=== PATIENT | female | born 1935 | race Caucasian/White ===

== ENCOUNTER 2017-07-08 13:16 | Outpatient (CLI) ==
[2016-07-22 19:56] VITALS: BMI 24.3
[2017-07-08 13:49] LABS: HEMATOCRIT 21.1 % (37.0-47.0); HEMOGLOBIN 6.6 g/dl (12.0-16.0)
== END 2017-07-08 13:17 | disposition home or self-care (01) ==
LOC: LAB 13:16
PROVIDERS: ATTEND Internal Medicine Hematology & Oncology
DX: N18.3 Chronic kidney disease, stage 3 (moderate) (principal); D63.1 Anemia in chronic kidney disease; R06.02 Shortness of breath; R53.1 Weakness
CPT/HCPCS: 36415; 85014; 85018; 86850; 86900; 86922

== ENCOUNTER 2017-07-09 08:48 | Outpatient (CLI) ==
[2016-07-22 19:56] VITALS: BMI 24.3
[2017-07-09 16:58] VITALS: BP 146/78; TEMP 98
== END 2017-07-09 08:49 | disposition home or self-care (01) ==
LOC: OPMED 08:48
PROVIDERS: ATTEND Internal Medicine Hematology & Oncology
DX: N18.9 Chronic kidney disease, unspecified (principal); D63.1 Anemia in chronic kidney disease; R06.02 Shortness of breath; R53.1 Weakness
CPT/HCPCS: 36415; 36430; 86850; 86900; 86922; 96366

== ENCOUNTER 2017-10-12 00:01 | Outpatient (POV) ==
[2016-07-22 19:56] VITALS: BMI 24.3
== END 2017-10-12 17:00 ==
LOC: OUTPT 00:01
PROVIDERS: ATTEND Otolaryngology
DX: H91.90 Unspecified hearing loss, unspecified ear (principal)

== ENCOUNTER 2018-04-12 09:53 | Outpatient (CLI) ==
[2016-07-22 19:56] VITALS: BMI 24.3
== END 2018-04-12 09:54 | disposition home or self-care (01) ==
LOC: LAB 09:53
PROVIDERS: ATTEND Specialist
DX: N18.3 Chronic kidney disease, stage 3 (moderate) (principal)
CPT/HCPCS: 36415; 80069; 81001; 82570; 83970; 84156; 84550; 85027

== ENCOUNTER 2018-08-11 16:19 | Emergency (ER) ==
[2018-08-11 16:30] VITALS: BP 162/78; TEMP 99.9; BMI 25.5
[2018-08-11] MEDS ORDERED: DECADRON 4 MG/ML SDV IM STA (17:14)
[2018-08-11] MEDS ORDERED: DUONEB NEB STA (17:14)
--- NOTE | 2018-08-11 18:15 | ED.PDOC ---
General ED Provider: Dr. ARTEM JARRETT Chief Complaint: Shortness of Air Stated Complaint: flu like symptoms Time Seen by Physician: 16:20 Mode of Arrival: Walk-In Information Source: Patient Exam Limitations: No limitations Primary Care Provider: MONO TADEO Nursing and Triage Documentation Reviewed and Agree: Yes Does patient meet sepsis criteria?: No If yes, has appropriate treatment been initiated?: No System Inflammatory Response Syndrome: Not Applicable Sepsis Protocol: For patient's 13 years and over: Temp is 96.8 and below OR 101 and greater Pulse >90 BPM Resp >20/minute Acutely Altered Mental Status Are patient's symptoms suggestive of a new infection, such as: -Pneumonia -Skin, Soft Tissue -Endocarditis -UTI -Bone, Joint Infection -Implantable Device -Acute Abdominal Infection -Wound Infection -Meningitis -Blood Stream Catheter Infection -Unknown Respiratory Complaint Exam - Respiratory Complaint/Exam Timing: Intermittent Initial Severity: Mild Current Severity: Mild Location: Nose, Throat, Chest Character: Reports: Non-productive cough, Dry cough Aggravating: Reports: URI Associated Signs and Symptoms: Reports: URI, Nasal congestion. Denies: Rapid breathing, Dyspnea, Fever, Chills, Chest pain, Pleuritic chest pain, Wheezing, Hemoptysis, Dizziness, Calf pain, Calf swelling, Edema, Hoarseness, Sinus discomfort, Vomiting, Sore throat, Weight loss, Decreased oral intake, Increased thirst, Increased appetite, Increased urination History of Healthcare-Acquired Pneumonia: No Related Surgical History: Reports: None Pulmonary Embolism Risk Factors: None Cardiac Risk Factors: Reports: None Pseudomonas Risk Factors: Reports: None Tuberculosis Risk Factors: Reports: None Status Asthmaticus Risk Factors: Reports: None Home Oxygen Use: No Recent Stress Test: No Recent Echo/LV Function: No Current Antibiotic Use: No Current Asthma Medication Use: No Respiratory Distress: None Inadequate Respiratory Effort: No Dysphagia Present: No Stridor Present: No JVD Present: No Accessory Muscle Use: No Retractions: Not Present Diminished Breath Sounds: No Sinus Tenderness: None Grunting Respirations: No Kussmaul Respirations: No Differential Diagnoses: Pneumonia, Bronchitis, Influenza Review of Systems - Review Of Systems Constitutional: Reports: Chills, Fever, Malaise Eyes: Reports: No symptoms Ears, Nose, Mouth, Throat: Reports: No symptoms Respiratory: Reports: Cough Cardiac: Reports: No symptoms GI: Reports: No symptoms : Reports: No symptoms Musculoskeletal: Reports: No symptoms Skin: Reports: No symptoms Neurological: Reports: No symptoms Endocrine: Reports: No symptoms Hematologic/Lymphatic: Reports: No symptoms All Other Systems: Reviewed and Negative Past Medical History - Past Medical History Endocrine: Reports: Hypothyroid Cardiovascular: Reports: Hypertension (in doctor's office) Respiratory: Reports: None, Other (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) Hematological: Reports: Anemia Gastrointestinal: Reports: None Genitourinary: Reports: None Neuro/Psych: Reports: None Musculoskeletal: Reports: None Cancer: Reports: None Last Menstrual Period: n/a - Surgical History General Surgical History: Reports: Hysterectomy - Family History Family History: Reports: Unknown - Social History Smoking Status: Never smoker Hx Substance Use: No Alcohol Screening: None Physical Exam - Physical Exam Appearance: Well-appearing, No pain distress, Well-nourished Eyes: KASIA, EOMI, Conjunctiva clear ENT: Ears normal, Nose normal, Oropharynx normal Respiratory: Airway patent, Breath sounds clear, Breath sounds equal, Respirations nonlabored Cardiovascular: RRR, Pulses normal, No rub, No murmur GI/: Soft, Nontender, No masses, Bowel sounds normal, No Organomegaly Musculoskeletal: Normal strength, ROM intact, No edema, No calf tenderness Skin: Warm, Dry, Normal color Neurological: Sensation intact, Motor intact, Reflexes intact, Cranial nerves intact, Alert, Oriented Psychiatric: Affect appropriate, Mood appropriate Critical Care Note - Critical Care Note Total Time (mins): 0 Course - Course Orders, Labs, Meds: Lab Review 08/11/18 08/11/18 17:34 17:34 Influ A Molecular Assay Positive by naat H Influ B Molecular Assay Negative by naat RSV Antigen Negative by naat Orders Category Date Time Status NEBULIZER TREATMENT Stat CARDIO 08/11/18 17:14 Ordered FLU A/B MOLECULAR Stat LAB 08/11/18 17:34 Completed MOLECULAR GROUP A STREP Stat LAB 08/11/18 17:34 Completed RSV Stat LAB 08/11/18 17:34 Completed Dexamethasone 4 mg/ml Inj [Decadron 4 mg/ml Sdv] MEDS 08/11/18 17:14 Discontinued 4 mg IM ONCE STA Ipratropium/Albuterol Neb [Duoneb] MEDS 08/11/18 17:14 Discontinued 1 vial NEB ONCE STA CT CHEST W/O CONTRAST Stat RADS 08/11/18 17:13 Taken Medications Discontinued Medications Generic Name Dose Route Start Last Admin Trade Name Mamie PRN Reason Stop Dose Admin Albuterol/Ipratropium 1 vial 08/11/18 17:14 Duoneb NEB 08/11/18 17:15 ONCE STA Dexamethasone Sodium Phosphate 4 mg 08/11/18 17:14 08/11/18 17:29 Decadron 4 Mg/Ml Sdv IM 08/11/18 17:15 4 mg ONCE STA Administration Vital Signs: Temp Pulse Resp BP Pulse Ox 08/11/18 16:20 99.9 F H 79 20 162/78 H 94 L Departure - Departure Time of Disposition: 18:15 Disposition: HOME SELF-CARE Discharge Problem: Influenza A Instructions: Influenza (ED) Condition: Good Pt referred to PMD for follow-up: Yes IPMP verified?: No Additional Instructions: Please call your Family Physician as soon as possible to schedule a follow-up appointment. Allergies/Adverse Reactions: Allergies Sulfa (Sulfonamide Antibiotics) Allergy (Verified 08/11/18 16:23) aspirin Adverse Reaction (Verified 07/22/16 20:05) clarithromycin [From Biaxin] Adverse Reaction (Verified 07/22/16 20:04) Penicillins Adverse Reaction (Verified 07/22/16 20:04) Home Medications: Ambulatory Orders Amlodipine/Atorvastatin [Amlodipine-Atorvast 2.5-10 Mg] 1 each PO DAILY Lorazepam 0.5 mg PO DAILY PRN 10/12/17 Levothyroxine Sodium [Synthroid] 150 mcg PO DAILY 08/11/18 Memantine HCl [Namenda] 10 mg PO DAILY 08/11/18
--- NOTE | 2018-08-11 18:47 | CT ---
EXAM: CT chest without contrast HISTORY: Cough TECHNIQUE: Multi-slice transaxial helical. Coronal and sagital reformations were performed. COMPARISON: 07/21/2016. 11/04/2014. FINDINGS: The heart is normal in size. Pacer leads are present within the right heart. Calcified plaques are present within the thoracic aorta. Multiple prominent calcified granulomas are present within the me diastinum. Evaluation of the hilar regions is limited without IV contrast. Visualized thyroid appears grossly unremarkable. Left chest generator pack is seen. There is no axi llary adenopathy. A large hiatal hernia is seen with partial intrathoracic stomach. Diverticuli are seen involving the colon. Otherwise the partially imaged upper abdomen appears grossly unremarkable . Bilateral glenohumeral joint space narrowing is present. The bones are osteopenic. Passive atelectasis is seen adjacent to the large hiatal hernia. Bilateral central patchy ground-gla ss opacities are present. No evidence of pleural effusion or pneumothorax is seen. Bilateral suprah ilar confluent opacities are also present as seen on axial image 20. IMPRESSION: 1. Bilateral central ground-glass and confluent patchy airspace opacities. Differential includes pn eumonia versus pulmonary edema. Recommend follow-up CT chest in 3 months after treatment regimen to document resolution and exclude other etiologies. 2. Large hiatal hernia with adjacent passive atelectasis. 3. Left chest dual lead pacer device. 4. Other chronic findings as detailed above.
== END 2018-08-11 18:54 | disposition home or self-care (01) ==
LOC: ED 16:19
DX: J11.1 Influenza due to unidentified influenza virus with other respiratory manifestations (principal); I10 Essential (primary) hypertension; E03.9 Hypothyroidism, unspecified; R06.02 Shortness of breath
CPT/HCPCS: 87502; 87651; 87801; 94640; 96372; 99283

== ENCOUNTER 2018-10-20 13:27 | Emergency (ER) ==
[2018-10-20 13:39] VITALS: BP 171/93; TEMP 98.6; BMI 25.0
--- NOTE | 2018-10-20 14:53 | ED.PDOC ---
General ED Provider: Dr. MAX LÓPEZ Chief Complaint: Shortness of Air Stated Complaint: states "lungs were damagesd years ago and is short winded on exertion. Time Seen by Physician: 14:53 Mode of Arrival: Walk-In Information Source: Patient Exam Limitations: No limitations Primary Care Provider: MONO TADEO Nursing and Triage Documentation Reviewed and Agree: Yes Does patient meet sepsis criteria?: No System Inflammatory Response Syndrome: Not Applicable Sepsis Protocol: For patient's 13 years and over: Temp is 96.8 and below OR 101 and greater Pulse >90 BPM Resp >20/minute Acutely Altered Mental Status Are patient's symptoms suggestive of a new infection, such as: -Pneumonia -Skin, Soft Tissue -Endocarditis -UTI -Bone, Joint Infection -Implantable Device -Acute Abdominal Infection -Wound Infection -Meningitis -Blood Stream Catheter Infection -Unknown Respiratory Complaint Exam - Shortness of Air Complaint/Exam Onset/Duration: on/off periodically Symptoms Are: Still present Timing: Intermittent Initial Severity: Moderate Current Severity: Mild Character: Reports: Dyspnea on exertion Aggravating: Reports: Movement Alleviating: Reports: Bronchodilators Associated Signs and Symptoms: Reports: Wheezing Related History: Reports: Similar episode Cardiac Risk Factors: Reports: Hypertension Pseudomonas Risk Factors: Reports: None Tuberculosis Risk Factors: Reports: None Home Oxygen Use: No Recent Stress Test: No Recent Echo/LV Function: No Respiratory Distress: None Stridor Present: No Tracheal Deviation: No Subcutaneous Emphysema: No Accessory Muscle Use: No Retractions: Not Present Diminished Breath Sounds: Yes Prolonged Expiratory Phase: Yes Unable to Speak Full Sentences: No Fatigue: No Leg Swelling: No Brayden's Sign Present: No Grunting Respirations: No Kussmaul Respirations: No Differential Diagnoses: Asthma, COPD Exacerbation, Pulmonary Embolism Related Surgical History: Reports: None Review of Systems - Review Of Systems Constitutional: Reports: Other Eyes: Reports: No symptoms Ears, Nose, Mouth, Throat: Reports: No symptoms Respiratory: Reports: Short of air Cardiac: Reports: No symptoms GI: Reports: No symptoms : Reports: No symptoms Musculoskeletal: Reports: No symptoms Neurological: Reports: No symptoms Endocrine: Reports: No symptoms Hematologic/Lymphatic: Reports: No symptoms All Other Systems: Reviewed and Negative Past Medical History - Past Medical History Previously Healthy: No (copd) Endocrine: Reports: Hypothyroid Cardiovascular: Reports: Hypertension (in doctor's office) Respiratory: Reports: None, Other (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) Hematological: Reports: Anemia Gastrointestinal: Reports: None Genitourinary: Reports: None Neuro/Psych: Reports: None Musculoskeletal: Reports: None Cancer: Reports: None Last Menstrual Period: unknown - Surgical History General Surgical History: Reports: Hysterectomy - Family History Family History: Reports: Unknown - Social History Smoking Status: Never smoker Hx Substance Use: No Alcohol Screening: None Physical Exam - Physical Exam Appearance: Thin Ill-appearing: Mild Pain Distress: None Eyes: KASIA ENT: Ears normal Neck: Supple Respiratory: Breath sounds diminished, Wheezes Cardiovascular: RRR GI/: Soft Musculoskeletal: Normal strength Skin: Warm Neurological: Sensation intact Critical Care Note - Critical Care Note Total Time (mins): 0 Course - Course Hematology/Chemistry: 10/20/18 15:13 10/20/18 15:13 Orders, Labs, Meds: Lab Review 10/20/18 10/20/18 15:13 15:13 WBC 8.18 RBC 4.65 Hgb 13.0 Hct 40.8 MCV 87.7 MCH 28.0 MCHC 31.9 RDW Coeff of Ron 14.9 H Plt Count 270 Immature Gran % (Auto) 0.4 Neut % (Auto) 72.8 Lymph % (Auto) 11.6 Cross % (Auto) 10.8 H Eos % (Auto) 4.2 Baso % (Auto) 0.2 Immature Gran # (Auto) 0.0 Neut # (Auto) 6.0 Lymph # (Auto) 1.0 Cross # (Auto) 0.9 Eos # (Auto) 0.3 Baso # (Auto) 0.0 Sodium 138.0 Potassium 4.09 Chloride 101.6 Carbon Dioxide 28.2 Anion Gap 12.29 BUN 17.5 H Creatinine 1.11 Estimated GFR (MDRD) 47.00 BUN/Creatinine Ratio 15.76 Glucose 102.4 Calcium 10.19 Total Bilirubin 0.45 AST 29.5 ALT 16.9 Alkaline Phosphatase 80.8 Total Protein 7.08 Albumin 4.40 Globulin 2.68 Albumin/Globulin Ratio 1.64 Orders Category Date Time Status NEBULIZER TREATMENT Stat CARDIO 10/20/18 16:24 Completed NPO REMINDER: IMAGING ONCE CARE 10/20/18 15:02 Completed CBC W/ AUTO DIFF Stat LAB 10/20/18 15:13 Completed COMPREHENSIVE METABOLIC PANEL Stat LAB 10/20/18 15:13 Completed Albuterol Sulfate 0.083% Neb [Albuterol 0.083% Neb] MEDS 10/20/18 16:23 Discontinued 1 vial NEB ONCE STA Medications Discontinued Medications Generic Name Dose Route Start Last Admin Trade Name Mamie PRN Reason Stop Dose Admin Albuterol Sulfate 1 vial 10/20/18 16:23 10/20/18 16:30 Albuterol 0.083% Neb NEB 10/20/18 16:24 1 vial ONCE STA Administration Vital Signs: Temp Pulse Resp BP Pulse Ox 10/20/18 13:30 98.6 F 75 20 171/93 H 92 L Departure - Departure Time of Disposition: 14:15 Disposition: HOME SELF-CARE Discharge Problem: Bronchitis Instructions: Chronic Bronchitis (DC) Condition: Good Pt referred to PMD for follow-up: Yes IPMP verified?: No Allergies/Adverse Reactions: Allergies Sulfa (Sulfonamide Antibiotics) Allergy (Verified 10/20/18 13:39) aspirin Adverse Reaction (Verified 10/20/18 13:39) clarithromycin [From Biaxin] Adverse Reaction (Verified 10/20/18 13:39) Penicillins Adverse Reaction (Verified 10/20/18 13:39) Home Medications: Ambulatory Orders Amlodipine/Atorvastatin [Amlodipine-Atorvast 2.5-10 Mg] 1 each PO DAILY Levothyroxine Sodium [Synthroid] 150 mcg PO DAILY 08/11/18 Memantine HCl [Namenda] 10 mg PO DAILY 08/11/18 Sucralfate Susp [Carafate] 10 ml PO DAILY 10/20/18 Disposition Discussed With: Patient, Family
[2018-10-20] MEDS ORDERED: ALBUTEROL 0.083% NEB NEB STA (16:23)
== END 2018-10-20 16:45 | disposition home or self-care (01) ==
LOC: ED 13:27
DX: J40 Bronchitis, not specified as acute or chronic (principal); R06.02 Shortness of breath; I10 Essential (primary) hypertension; E03.9 Hypothyroidism, unspecified; D86.0 Sarcoidosis of lung; Z79.899 Other long term (current) drug therapy
CPT/HCPCS: 36415; 80053; 85025; 94640; 99283

== ENCOUNTER 2018-10-24 13:30 | Outpatient (CLI) | END 2018-10-24 13:31 | disposition home or self-care (01) | LOC: CAR 13:30 | PROVIDERS: ATTEND Family Medicine | DX: D86.0 Sarcoidosis of lung (principal); J47.9 Bronchiectasis, uncomplicated | CPT/HCPCS: 94761 ==